=== PATIENT | female | born 1960 | race Caucasian/White ===

== ENCOUNTER 2024-01-24 10:40 | Emergency (ER) | payer OTHER, SELFPAY ==
[2024-01-24 10:57] VITALS: BP 138/92
--- NOTE | 2024-01-24 11:52 | ED.GENMED ---
History of Present Illness
General
Chief Complaint: Abdominal Symptoms
Source: patient
Exam Limitations: none
Time Seen by Provider: 01/24/24 11:27
Nursing documentation reviewed up to this point in time: agreed with
Travel History
Have you had any contact with someone who has COVID-19?: No
Do you have any symptoms of coronavirus? Fever > 100 degrees, chills, cough, shortness of breath, sore throat, loss of taste or smell, muscle aches, or headache?: No
History of Present Illness
History of Present Illness:
Patient presents to ED secondary to intermittent upper abdominal pain associated with nausea and vomiting since last night. Initial symptoms started as she was having cheeseburger for dinner. Pain eventually subsided when she went to sleep.
Shortly prior to arrival this morning, patient states that her pain returned with nausea sensation. Abdominal pain described as sharp, nonradiating, without any alleviating or exacerbating factors. Denies trauma. Denies difficulty urination.
Denies previous history of similar symptoms. Denies recent illness.
Past History
Past History
ED Past Medical History: Psychiatric and Other (Chronic back pain)
ED Past Surgical History: None
Social History
Tobacco: Smoker
Alcohol: None
Review of Systems
Review of Systems
All Other Systems: ROS reviewed and negative except as documented in HPI and ROS
Constitutional: Reports no symptoms; Denies fever or chills
ABD/GI: Reports abdominal pain, nausea and vomiting; Denies diarrhea
Musculoskeletal: Reports no symptoms
Skin: Reports no symptoms
Neurological: Reports no symptoms
Phy Exam
Physical Exam
Physical Exam:
Physical Exam
General: mild painful distress, not acutely ill. afebrile
Head: nc/at. eomi
Neck: supple. no meningeal signs.
Heart: s1/s2 regular rate and rhythm, no murmur. equal radial pulses.
Lungs: no acute respiratory distress. clear bilaterally
Abdomen: normal bowel sounds. mild epigastric/RUQ tenderness to palpation.
Neuro: alert and oriented. no focal neurological deficits
Skin: no rash
Psychiatric: well kept. interactive and cooperative
Extremities: no edema. no calf tenderness.
Course
Orders/Labs/Results
Orders:
Orders
01/24/24 11:51
HYDROmorphone [Dilaudid] 0.5 mg IV NOW STA
01/24/24 11:52
0.9% Sodium Chloride 500 ml [Nss] 500 ml IV BOLUS
US Abdomen Complete/Upper Urgent
Comment:
Reason For Exam: epigastric/RUQ pain
01/24/24 12:09
Complete Blood Count/With Diff Urgent
Comprehensive Metabolic Panel Urgent
Lipase Urgent
01/24/24 12:46
Urinalysis Reflex To Culture Urgent
Date Specimen was Collected: 01/24/24
Time Specimen was Collected: 12:42
Urine Microscopic Reflex Cult Urgent
Abnormal Lab Results
01/24/24 01/24/24
12:09 12:46
WBC 3.4 L 10^3/uL
(4.8-10.8)
RBC 3.89 L 10^6/uL
(4.20-5.40)
Hgb 11.7 L g/dL
(12.0-16.0)
Hct 35.4 L %
(37.0-47.0)
MPV 10.7 H fL
(7.4-10.4)
BUN 20 H mg/dl
(7-17)
Glucose 122 H mg/dl
(70-99)
Urine Ketones Trace A
(Negative)
Urine Bilirubin 1+ A
(Negative)
Leukocyte Esterase Rfl Trace A
(Negative)
Urine Bacteria (Reflex) Few A
(Negative)
01/24/24 12:09
01/24/24 12:09
Vital Signs
Initial and Last Documented VS:
Initial Vital Signs
Temp Pulse Resp BP Pulse Ox
98.8 F 99 16 138/92 98
01/24/24 10:57 01/24/24 10:57 01/24/24 10:57 01/24/24 10:57 01/24/24 10:57
Last Documented Vital Signs
Temp Pulse Resp BP Pulse Ox
98.8 F 85 18 157/90 97
01/24/24 10:57 01/24/24 14:56 01/24/24 14:56 01/24/24 14:56 01/24/24 14:56
MDM/Problems Addressed
MDM/Problems Addressed:
History, exam, and abdominal ultrasound consistent with biliary colic. Otherwise, patient is afebrile, hemodynamically stable, and reports improvement in symptoms after treatment. Patient will be discharged home in stable condition with
recommendation to follow-up with general surgery for an outpatient consultation, along with diet modification. Advised to return to ED with worsening symptoms, i.e. fever/worsening pain/vomiting.
*Critical Care Note
Total Time (30-74mins, 75-104mins- exclusive of procedures): Not Applicable
ED Attending Note
-
Portions of this chart may have been created with voice recognition software.� Occasional wrong word or��sound alike� substitutions may have occurred due to the inherent limitations of voice recognition software.
Discharge Plan
Departure
Patient Disposition: Home (Routine Discharge)
Date of Disposition: 01/24/24
Time of Disposition: 14:51
Patient with high blood pressure during this ER visit?: Yes
Condition: Good
Discharge Problem:
Biliary colic
Instructions: Gallstones ED, Low-fat diet
Prescriptions:
No Action
lithium carbonate 300 MG tablet extended release
300 mg PO BID
hydroxychloroquine [Plaquenil] 200 MG tablet
200 mg PO DAILY
venlafaxine 75 MG capsule,extended release 24hr
225 mg PO DAILY 0RF
donepezil 10 MG tablet
10 mg PO HS 0RF
levothyroxine 50 MCG tablet
50 mcg PO DAILY AT 0700 0RF
famotidine [Pepcid] 40 MG tablet
40 mg PO HS
hydroxyzine HCl 50 MG tablet
50 mg PO QID
Xtampza ER
27 mg PO Q12H
oxybutynin chloride 5 MG tablet
5 mg PO HS
quetiapine [Seroquel] 50 MG tablet
1 - 2 tab PO HS
sennosides [senna] 1 TABLET tablet
2 tab PO BID 0RF
magnesium hydroxide 30 ML suspension
30 ml PO HS 0RF
docusate sodium 100 MG capsule
100 mg PO BID 0RF
prednisone 10 MG tablet
30 mg PO TAPER Qty: 12 0RF
Rx Instructions:
3 tabs (30mg) x2 days, 2 tabs (20mg) x2 days, 1 tab (10mg) x2 days, then stop
gabapentin 100 MG capsule
200 mg PO TID Qty: 30 0RF
aspirin 81 MG tablet,chewable
81 mg PO DAILY Qty: 0 0RF
Rx Instructions:
Resume 06/12/21 per surgeon
oxycodone-acetaminophen [Percocet] 1 EACH tablet
1 ea PO Q6HPRN PRN (Reason: breakthrough pain) Qty: 0 0RF
Rx Instructions:
Home medication.
Referrals:
Joshua Herrera MD [Active] -
Haley Encinas DO [Family Provider] -
Activity Restrictions/Additional Instructions:
As discussed, please follow-up with your primary care physician and/or referred general surgeon for further evaluation and treatment. Please return to ED with worsening symptoms, i.e. fever/worsening pain/vomiting.
Interventions
Interventions:
*Risk Screen - Suicide Last Done: 01/24/24 11:26
*General Assessment Last Done: 01/24/24 11:26
*Neglect/Abuse Screening Last Done: 01/24/24 11:26
ED- Fall Risk Assessment Last Done: 01/24/24 11:28
*ED COVID-19 Vaccine History Last Done: 01/24/24 10:57
*Nursing Disposition Last Done: 01/24/24 15:16
MG-Fyrfec-Sahrckezsk Assessment Last Done: 01/24/24 11:27
Discharge Date and Time
Discharge Date/Time: 01/24/24 15:17
Print Language: WOLOF
[2024-01-24] MEDS: NSS 500 IV (12:07)
[2024-01-24] MEDS: DILAUDID 0.5 MG IV (12:08)
[2024-01-24 12:26] LABS: % Basophils 0.9 % (0-2); % Eosinophils 2.1 % (0-6); % Immature Granulocytes 0.3 % (0-0.5); % Lymphocytes 35.3 % (20.5-51.1); % Monocytes 6.2 % (1.7-9.3); % Neutrophils 55.2 % (42.2-75.2); Absolute Eosinophils 0.1 10^3/uL (0-0.7); Absolute Lymphocytes 1.2 10^3/uL (1.2-3.4); Absolute Monocytes 0.2 10^3/uL (0.1-0.6); Absolute Neutrophils 1.9 10^3/uL (1.4-6.5); Hematocrit 35.4 % (37.0-47.0); Hemoglobin 11.7 g/dL (12.0-16.0); Mean Corp Hgb Conc. 33.1 g/dL (33.0-37.0); Mean Corpuscular Hgb 30.1 pg (27.0-31.0); Mean Platelet Volume 10.7 fL (7.4-10.4); Nucleated Red Blood Cells % 0 %; Platelet Count 231 10^3/uL (130-400); Red Blood Cell Count 3.89 10^6/uL (4.20-5.40); White Blood Cell Count 3.4 10^3/uL (4.8-10.8)
[2024-01-24 12:34] LABS: ALT (SGPT) 16 U/L (0-35); AST (SGOT) 20 U/L (14-36); Albumin 4.5 g/dl (3.5-5.0); Alkaline Phosphatase 84 U/L (38-126); Blood Urea Nitrogen 20 mg/dl (7-17); Calcium 9.6 mg/dl (8.4-10.2); Carbon Dioxide 25 mmol/L (22-30); Chloride 107 mmol/L (98-107); Glucose 122 mg/dl (70-99); Lipase 29 U/L (23-300); Potassium 3.9 mmol/L (3.5-5.1); Sodium 141 mmol/L (135-145); Total Bilirubin 0.6 mg/dl (0.2-1.3); Total Protein 6.9 g/dl (6.3-8.2); eGFR > 60.00
[2024-01-24 12:57] LABS: Urine Albumin Trace (Neg - Trace); Urine Bilirubin 1+ (Negative); Urine Character Clear (Clear); Urine Color Yellow; Urine Glucose Negative (Negative); Urine Ketone Trace (Negative); Urine Leukocyte Trace (Negative); Urine Nitrite Negative (Negative); Urine Occult Blood Negative (Negative); Urine Urobilinogen 1+ (Neg - 1+)
[2024-01-24 13:11] LABS: Urine Bacteria Few (Negative); Urine Red Blood Cell None Seen /HPF (0-2)
[2024-01-24 14:56] VITALS: BP 157/90
== END 2024-01-24 15:17 | disposition home or self-care (01) ==
LOC: EMR 10:40
PROVIDERS: EMERGENCY PHYSICIAN Emergency Medicine; FAMILY PHYSICIAN Family Medicine
DX: K80.70 Calculus of gallbladder and bile duct without cholecystitis without obstruction (principal); R11.2 Nausea with vomiting, unspecified; R03.0 Elevated blood-pressure reading, without diagnosis of hypertension; M54.9 Dorsalgia, unspecified; G89.29 Other chronic pain; M32.9 Systemic lupus erythematosus, unspecified; E03.9 Hypothyroidism, unspecified; N32.81 Overactive bladder; F31.9 Bipolar disorder, unspecified; F32.A Depression, unspecified; F17.200 Nicotine dependence, unspecified, uncomplicated; Z98.1 Arthrodesis status; Z79.82 Long term (current) use of aspirin; Z88.1 Allergy status to other antibiotic agents; Z88.2 Allergy status to sulfonamides; Z88.8 Allergy status to other drugs, medicaments and biological substances
CPT/HCPCS: 99284; 96374; 96361; 76700; 80053; 81003; 81015; 83690; 85025

== ENCOUNTER 2024-02-28 06:24 | Day surgery (SDC) | payer OTHER, SELFPAY ==
[2024-02-11 13:05] VITALS: BMI 29.4
[2024-02-28] VITALS (12 sets, daily range): BP systolic 110–147; BP diastolic 46–86; BMI 29.4
[2024-02-28] MEDS: NORMOSOL-R 1000 IV (08:17)
[2024-02-28] MEDS: TYLENOL 1000 MG PO (08:17)
--- NOTE | 2024-02-28 09:11 | W.SUR.PREOP ---
Pre-Operative Surgical Note
-
I have examined this patient prior to the performance of the scheduled procedure.
The patient's condition is unchanged from the time of the current History and
Physical and the patient is able to undergo the scheduled procedure.
--- NOTE | 2024-02-28 11:41 | W.IMMPOSTOP ---
Surgical Immed Post Op Note
-
Primary Surgeon: Andrea Monsalve MD
Assisting Surgeon: None
Pre-op Diagnosis: Biliary colic
Post-op Diagnosis: Same
Procedure Performed: Laparoscopic cholecystectomy with cholangiogram
Anesthesia Type: General
Specimen / Cultures: Gallbladder and contents
Estimated Blood Loss: 7 cc
Complications: Superficial thermal injury to the tissues overlying the duodenum, oversewn with 2 interrupted Vicryl sutures in a Lembert fashion.
Operative Findings: Markedly distended gallbladder with significant overlying adhesions taken down with blunt and electrocautery dissection. A very superficial thermal injury to some of the connective tissue overlying the duodenum was noted and
oversewn out of an abundance of caution. Critical view of safety was obtained prior to a cholangiogram which demonstrated normal biliary anatomy though the common hepatic duct did appear somewhat dilated. There is no distal filling defects and
there is brisk flow of bile into the duodenum. The cystic duct was taken with a 5 mm titanium clip followed by a 0 PDS Endoloop.
--- NOTE | 2024-02-28 11:45 | OR.RPT ---
Operative Report
Operative Report
Patient Name: Rosa Elena Hopkins
: 1960
Date of Operation: 02/28/2024
Preoperative Diagnosis: Symptomatic Cholelithiasis
Postoperative Diagnosis: Same
Procedure(s):
Laparoscopic Cholecystectomy with Cholangiogram
Surgeon(s):
Dr. Monsalve
Lead Ramp Service Man(s):
TIERRA Sloan
Anesthesia: General
Estimated Blood Loss: 7 cc
Urine Output: None
Drains/Lines/Implants: None
Specimens:
1. Gallbladder and contents
HPI/Surgical Indications:
This is a 63 year old female who presented to our office with abdominal pain. Exam, labs and imaging are consistent with symptomatic cholelithiasis. Risks/Benefits/Alternatives were discussed at length, and the patient agreed to proceed with
surgery.
Operative Findings: Markedly distended gallbladder with significant overlying adhesions taken down with blunt and electrocautery dissection. A very superficial thermal injury to some of the connective tissue overlying the duodenum was noted and
oversewn out of an abundance of caution. Critical view of safety was obtained prior to a cholangiogram which demonstrated normal biliary anatomy though the common hepatic duct did appear somewhat dilated. There is no distal filling defects and
there is brisk flow of bile into the duodenum. The cystic duct was taken with a 5 mm titanium clip followed by a 0 PDS Endoloop.
Procedure Description:
The patient was brought to the Operating Room and placed in the supine position. IV antibiotics were infused and sequential compression devices were confirmed to be on. Following uneventful induction of general endotracheal anesthesia, an
orogastric tube was placed. The abdomen was prepped and draped in the usual sterile fashion. The abdomen was entered using a a left subcostal Veress technique which required a single pass followed by a right upper quadrant periumbilical 5 mm
Optiview trocar. Pneumoperitoneum to 12 mmHg pressure was obtained without difficulty and we confirmed that no injury had occurred during our entry. The patient was positioned in reverse trendelenberg and rotated with the right side up slightly. Two
5mm trocars were then placed along the right subcostal margin, and a 12 mm port in the epigastrium. A locking grasping forceps was placed on the fundus of the gallbladder where it was then retracted cephalad and to the right. There was significant
adhesions overlying the infundibulum of the gallbladder. These were taken down with blunt dissection and electrocautery. During this portion of the dissection there was potential thermal injury to the tissues overlying the duodenum. Though no
direct injury was identified, these tissues were imbricated using 2 interrupted 2-0 Vicryl sutures in a Lembert fashion. The gallbladder was markedly distended and so a cholecystotomy was made at the fundus and the gallbladder contents were
suctioned out. With the gallbladder more maneuverable, using appropriate grasping instruments, the peritoneum overlying the triangle of Calot was incised. The cystic duct/gallbladder junction was identified, dissected circumferentially. The
cystic artery was identified medially and was dissected circumferentially. A critical view was obtained. A clip was then placed on the cystic duct/gallbladder junction and an intraoperative cholangiogram performed using fluoroscopy, which showed
good flow of dye into the duodenum. There were no intra- or extrahepatic bile duct filling defects. The biliary anatomy appeared normal, though the common hepatic duct did appear a little bit dilated though this could be due to to radiographic
artifact and stacking. Following completion of the cholangiogram, the catheter was removed. Two clips were then placed proximally on the cystic duct and the duct divided. This was reinforced with a 0 PDS Endoloop. Two clips were placed proximally
and one distally on the cystic artery, and the artery was divided. Remaining soft tissue attachments of the gallbladder to the liver bed were then divided using electrocautery. There was some spillage of bile, but no spillage of stones. The
gallbladder bed was inspected and excellent hemostasis was obtained. The gallbladder was extracted through the 12 mm trocar site using an endocatch bag. The abdomen was again irrigated and excellent hemostasis was assured. All remaining trocars
were then removed and the pneumoperitoneum was evacuated. The 12 mm trocar site was closed using a figure of 8 of 0 PDS. All trocar sites were closed at the skin level using 4-0 Monocryl followed by Dermabond. Overall, the patient tolerated the
procedure well and was taken to the Recovery Room postoperatively in stable condition.
I was the attending physician and performed the procedure with assistance from the COMPRESSOR SERVICE TECHNICIAN above. I was present for all portions of the case
Andrea Monsalve MD
[2024-02-28] MEDS: DILAUDID 0.5 MG IV ×2 (11:59→12:20)
[2024-02-28] MEDS: ROXICODONE 5 MG PO ×2 (13:30→14:14)
== END 2024-02-28 14:45 | disposition home or self-care (01) ==
LOC: SDS 06:24
PROVIDERS: ATTENDING PHYSICIAN Surgery; FAMILY PHYSICIAN Family Medicine; OTHER PHYSICIAN Internal Medicine Cardiovascular Disease
DX: K80.20 Calculus of gallbladder without cholecystitis without obstruction (principal)
CPT/HCPCS: 47563; 88304; 36415; 74300; 76000; 93005